=== PATIENT | male | born 1950 | race Caucasian/White ===

== ENCOUNTER → 2024-03-20 12:49 | Outpatient (REF) | payer MEDICARE, OTHER, SELFPAY | LOC: EMG 12:49 | PROVIDERS: ATTENDING PHYSICIAN Internal Medicine; FAMILY PHYSICIAN Physician Assistant Medical | DX: R20.0 Anesthesia of skin (principal) | CPT/HCPCS: 95886; 95911 ==

== ENCOUNTER → 2024-04-14 07:06 | Outpatient (REF) | payer MEDICARE, OTHER, SELFPAY | LOC: MRI 07:06 | PROVIDERS: ATTENDING PHYSICIAN Orthopaedic Surgery Orthopaedic Surgery of the Spine; FAMILY PHYSICIAN Internal Medicine | DX: M48.062 Spinal stenosis, lumbar region with neurogenic claudication (principal) | CPT/HCPCS: 72148 ==

== ENCOUNTER 2024-08-19 14:58 | Emergency (ER) | payer MEDICARE, OTHER, SELFPAY ==
[2024-08-19 15:02] VITALS: BP 175/89
--- NOTE | 2024-08-19 15:04 | ED.GENMED ---
ED Provider Triage
<Lucina Robertson PA-C - Last Filed: 08/19/24 15:07>
-
Patient seen by provider in Triage?: Seen in Triage
Attestation: A medical screening examination has been initiated by a qualified medical provider. Based on the assessment performed at this time, it has been determined that an emergent medical condition may exist and the patient has been informed
that further medical evaluation and possible additional diagnostic testing may be needed.
HPI: 74yoM here with chest pain. Started 3-4 days ago. Intermittent pain, radiates to back, associated with SOB. Recent COVID infection earlier this week.
GENERAL: Alert , in no apparent distress
EYE: No visual abnormalities.
NECK: Trachea midline
ENT: No visible abnormalities.
LUNGS: No acute respiratory distress
NEUROLOGICAL: Alert and oriented
SKIN: Skin intact. No visible changes.
MUSCULOSKELETAL: Moving extremities normally
PSYCH: Normal and appropriate interaction.
This is a medical evaluation conducted in person to initiate diagnostic evaluation and provide initial therapeutics. Please see further documentation by the treating clinician.
Cardiac labs, D-dimer, EKG, and CXR ordered.
History of Present Illness
<Lucina Robertson PA-C - Last Filed: 08/19/24 15:07>
General
Chief Complaint: Chest Pain
Time Seen by Provider: 08/19/24 16:28
<Samira Barton CONSULTING TECHNICAL DIRECTOR - Last Filed: 08/19/24 22:12>
General
Source: patient and spouse
Exam Limitations: none
Nursing documentation reviewed up to this point in time: agreed with
History of Present Illness
History of Present Illness:
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 He states while standing at a soccer game for his knees 3 days ago he
developed sudden onset of fast heart rate and shortness of breath. He has had several episodes daily lasting up to 5 minutes since. He has also had intermittent pain across his upper chest and the same level across his upper back.
He had COVID symptoms on July 29 with cough, diagnosed with COVID on August 06 and was given steroids. He states he has been gradually feeling a little better some good days, some bad days.
[place], went on a [employer] cruise where he and his both contracted COVID, and flew back on July 30. He denies pain or swelling in his legs. There are no aggravating or relieving factors for his symptoms.
He denies fever or chills. Denies abdominal pain.
Past History
<Lucina Robertson PA-C - Last Filed: 08/19/24 15:07>
Past History
ED Past Medical History: HTN, Hypercholesterolemia and Other
ED Past Surgical History: Tonsilectomy
Social History
Tobacco: Former smoker
Alcohol: Occasional
Drug: None
Personal:
Living: with family
Employment: Employed
Family History
Family History: Other (Noncontributory)
Review of Systems
<Samira Barton CONSULTING TECHNICAL DIRECTOR - Last Filed: 08/19/24 22:12>
Review of Systems
Allergies reviewed?: Yes
All Other Systems: ROS reviewed and negative except as documented in HPI and ROS
Constitutional: Denies fever or fatigue
Respiratory: Denies cough or trouble breathing (Feels short of breath at times)
Cardiac: Reports chest pain and palpitations; Denies diaphoresis
ABD/GI: Denies abdominal pain or nausea
: Denies dysuria or difficulty voiding
Musculoskeletal: Reports no symptoms
Skin: Reports no symptoms
Neurological: Reports no symptoms
Phy Exam
<Samira Barton CONSULTING TECHNICAL DIRECTOR - Last Filed: 08/19/24 22:12>
Physical Exam
Physical Exam:
GENERAL: No acute distress. A&Ox3.
CONSTITUTIONAL: Afebrile.
EYES: clear, conjunctivae normal
ENMT: moist mucus membranes, Pharynx nl
RESPIRATORY: Regular respirations, nonlabored, lungs clear.
CARDIOVASCULAR: Regular rate and rhythm, no murmurs, no rubs.
GI: Soft, nontender, normal BS
MUSCULOSKELETAL: Moves with ease. Well perfused.
SKIN: Warm, dry, pink
PSYCH: Normal mood and affect. Well kept, interactive and appropriate
NEUROLOGIC: Awake, alert and oriented. No focal neurological deficits
Scores
<Samira Barton CONSULTING TECHNICAL DIRECTOR - Last Filed: 08/19/24 22:12>
Heart Score for Chest Pain Patients
STEMI patient?: Not applicable
Course
<Lucina Robertson PA-C - Last Filed: 08/19/24 15:07>
Orders/Labs/Results
Orders:
Orders
08/19/24 15:01
Electrocardiogram (*1) Urgent
Reason for Study: Chest Pain
EKG- Treatment ONCE
08/19/24 15:06
CR Chest - 2 Views Urgent
Comment:
Reason For Exam: CP
08/19/24 15:12
Complete Blood Count/With Diff Urgent
Comprehensive Metabolic Panel Urgent
D-Dimer Urgent
Troponin I Urgent
08/19/24 15:52
CT Chest Pe Study Urgent
Comment:
Reason For Exam: Chest pain, elevated D-dimer
08/19/24 18:56
Azithromycin [Zithromax] 500 mg PO NOW STA
Doxycycline [Vibramycin] 100 mg PO NOW STA
Abnormal Lab Results
08/19/24
15:12
MPV 10.8 H fL
(7.4-10.4)
Abs Immat Gran (auto) 0.1 H 10^3/uL
(0-0.05)
Absolute Monos (auto) 0.8 H 10^3/uL
(0.1-0.6)
Immature Gran % 0.7 H %
(0-0.5)
D-Dimer 1.16 H ug/mlFEU
(0.00-0.50)
Glucose 141 H mg/dl
(70-99)
08/19/24 15:12
08/19/24 15:12
Vital Signs
Initial and Last Documented VS:
Initial Vital Signs
Temp Pulse Resp BP Pulse Ox
97.8 F 71 18 175/89 96
08/19/24 15:02 08/19/24 15:02 08/19/24 15:02 08/19/24 15:02 08/19/24 15:02
Last Documented Vital Signs
Temp Pulse Resp BP Pulse Ox
97.8 F 68 22 134/70 96
08/19/24 15:02 08/19/24 19:30 08/19/24 19:30 08/19/24 19:00 08/19/24 19:15
<Samira Barton, CONSULTING TECHNICAL DIRECTOR - Last Filed: 08/19/24 22:12>
Orders/Labs/Results
Orders:
Orders
08/19/24 15:01
Electrocardiogram (*1) Urgent
Reason for Study: Chest Pain
EKG- Treatment ONCE
08/19/24 15:06
CR Chest - 2 Views Urgent
Comment:
Reason For Exam: CP
08/19/24 15:12
Complete Blood Count/With Diff Urgent
Comprehensive Metabolic Panel Urgent
D-Dimer Urgent
Troponin I Urgent
08/19/24 15:52
CT Chest Pe Study Urgent
Comment:
Reason For Exam: Chest pain, elevated D-dimer
08/19/24 18:56
Azithromycin [Zithromax] 500 mg PO NOW STA
Doxycycline [Vibramycin] 100 mg PO NOW STA
Abnormal Lab Results
08/19/24
15:12
MPV 10.8 H fL
(7.4-10.4)
Abs Immat Gran (auto) 0.1 H 10^3/uL
(0-0.05)
Absolute Monos (auto) 0.8 H 10^3/uL
(0.1-0.6)
Immature Gran % 0.7 H %
(0-0.5)
D-Dimer 1.16 H ug/mlFEU
(0.00-0.50)
Glucose 141 H mg/dl
(70-99)
08/19/24 15:12
08/19/24 15:12
Vital Signs
Initial and Last Documented VS:
Initial Vital Signs
Temp Pulse Resp BP Pulse Ox
97.8 F 71 18 175/89 96
08/19/24 15:02 08/19/24 15:02 08/19/24 15:02 08/19/24 15:02 08/19/24 15:02
Last Documented Vital Signs
Temp Pulse Resp BP Pulse Ox
97.8 F 68 22 134/70 96
08/19/24 15:02 08/19/24 19:30 08/19/24 19:30 08/19/24 19:00 08/19/24 19:15
<Samira Barton CONSULTING TECHNICAL DIRECTOR - Last Filed: 08/19/24 22:12>
MDM/Problems Addressed
Differential Diagnosis Includes:
NV, PE, AAA
MDM/Problems Addressed:
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 He states while standing at a soccer game for his knees 3 days ago he
developed sudden onset of fast heart rate and shortness of breath. He has had several episodes daily lasting up to 5 minutes since. He has also had intermittent pain across his upper chest and the same level across his upper back.
He had COVID symptoms on July 29 with cough, diagnosed with COVID on August 06 and was given steroids. He states he has been gradually feeling a little better some good days, some bad days.
[place], went on a [employer] cruise where he and his both contracted COVID, and flew back on July 30. He denies pain or swelling in his legs. There are no aggravating or relieving factors for his symptoms.
He denies fever or chills. Denies abdominal pain.
Pt states he had a chest CT and has 'something abnormal' in his aorta, 'not big enough to be an aneurysm.' Gets routine yearly CT's for observation of the area
4:45 PM:
Afebrile, NAD, vital signs stable with a blood pressure of 136/78, heart rate 70, pulse ox 96% room air
Patient states he has no symptoms at this time
CBC normal
CMP normal
Troponin 0.031
D-dimer 1.[address] PE study
7:30 PM:
Chest CT PE study radiology report read: IMPRESSION:
1. No evidence of pulmonary embolism.
2. Mosaic attenuation of the lungs with a 2.4 cm nodular consolidation in the left lower lobe which may represent multifocal infectious process or mild interstitial edema with nodular atelectasis. Consider follow-up CT chest to ensure resolution.
No thoracic aneurysm
CAT scan report reviewed with patient and . They will take a copy to their PCP to discuss
Prescription for azithromycin and doxycycline sent to their pharmacy
<Samira Barton NP - Last Filed: 08/19/24 22:12>
*Critical Care Note
Total Time (30-74mins, 75-104mins- exclusive of procedures): Not Applicable
ED Attending Note
<Lucina Robertson PA-C - Last Filed: 08/19/24 15:07>
-
Portions of this chart may have been created with voice recognition software.� Occasional wrong word or��sound alike� substitutions may have occurred due to the inherent limitations of voice recognition software.
Discharge Plan
Departure
Patient Disposition: Home (Routine Discharge)
Date of Disposition: 08/19/24
Time of Disposition: 19:55
Patient with high blood pressure during this ER visit?: No
Condition: Good
Discharge Problem:
Pneumonia
Instructions: Pneumonia
Prescriptions:
New
doxycycline hyclate 100 mg capsule
100 mg PO BID Qty: 19 0RF
azithromycin [Zithromax] 250 mg tablet
250 mg PO DAILY Qty: 4 0RF
No Action
ascorbic acid (vitamin C) [Vitamin C] 1,000 MG tablet
1,000 mg PO DAILY
sennosides [senna] 1 TABLET tablet
2 tab PO BID 0RF
acetaminophen [Tylenol Extra Strength] 500 MG tablet
1,000 mg PO Q6H 0RF
tramadol 50 MG tablet
50 mg PO Q6HPRN PRN (Reason: moderate-severe pain) Qty: 30 0RF
Rx Instructions:
1 tab moderate pain or 2 if pain severe
Dx laminectomy
ongoing therapy
tizanidine 4 MG tablet
4 mg PO HS Qty: 5 0RF
metformin 1,000 mg Tablet Extended Release 24 Hr
1,000 mg PO DAILY
loratadine [Claritin] 10 mg Tablet
10 mg PO DAILY
irbesartan 150 mg Tablet
150 mg PO DAILY
dexamethasone 6 mg tablet
6 mg PO BID 2 Days Qty: 4 0RF
Rx Instructions:
first dose on 02/07/23, when completed, start prednisone taper
prednisone 10 mg tablet
10 mg PO DIRECTED 9 Days Qty: 18 0RF
Rx Instructions:
start after dexamethasone is completed-3 tabs QD for 3 days, 2 tabs QD for 3 days, 1 tab QD for 3 days
pantoprazole 40 mg Tablet,Delayed Release (Dr/Ec)
40 mg PO DAILY 14 Days Qty: 14 0RF
Referrals:
Ruddy Wise I., DO [Family Provider] - Call in 1-3 days for appt
Activity Restrictions/Additional Instructions:
As we discussed, your CAT scan shows pneumonia
I sent a prescription to your [facility] pharmacy for the azithromycin to take once daily for the next 4 days starting tomorrow as you were given a dose here today
I also sent a prescription to your pharmacy for doxycycline to take twice a day for 10 days starting tomorrow as you were given a dose here today
Call your doctors office tomorrow and make an appointment for follow-up for 10 to 14 days. Take your laboratory work and CAT scan report with you to discuss
Interventions
Interventions:
*Risk Screen - Suicide Last Done: 08/19/24 18:27
*General Assessment Last Done: 08/19/24 16:58
*Neglect/Abuse Screening Last Done: 08/19/24 18:27
ED- Fall Risk Assessment Last Done: 08/19/24 18:27
*ED COVID-19 Vaccine History Last Done: 08/19/24 16:58
*Nursing Disposition Last Done: 08/19/24 20:07
ED- Cardiac Assessment Last Done: 08/19/24 18:27
Discharge Date and Time
Discharge Date/Time: 08/19/24 20:08
Print Language: IRANIAN
[2024-08-19 15:17] LABS: % Basophils 0.4 % (0-2); % Eosinophils 1.2 % (0-6); % Immature Granulocytes 0.7 % (0-0.5); % Monocytes 8.6 % (1.7-9.3); % Neutrophils 63.1 % (42.2-75.2); Absolute Eosinophils 0.1 10^3/uL (0-0.7); Absolute Immature Granulocytes 0.1 10^3/uL (0-0.05); Absolute Lymphocytes 2.4 10^3/uL (1.2-3.4); Absolute Monocytes 0.8 10^3/uL (0.1-0.6); Absolute Neutrophils 5.8 10^3/uL (1.4-6.5); Hematocrit 43.2 % (39.0-52.0); Hemoglobin 15.1 g/dL (13.0-18.0); Mean Corpuscular Hgb 30.8 pg (27.0-31.0); Mean Platelet Volume 10.8 fL (7.4-10.4); Nucleated Red Blood Cells % 0 % (-); Platelet Count 268 10^3/uL (130-400); Red Blood Cell Count 4.91 10^6/uL (4.70-6.10); Red Cell Dist. Width 12.8 % (11.5-14.5); White Blood Cell Count 9.2 10^3/uL (4.8-10.8)
[2024-08-19 15:28] LABS: ALT (SGPT) 36 U/L (0-50); AST (SGOT) 32 U/L (17-59); Albumin 4.2 g/dl (3.5-5.0); Alkaline Phosphatase 73 U/L (38-126); Blood Urea Nitrogen 20 mg/dl (9-20); Calcium 9.1 mg/dl (8.4-10.2); Carbon Dioxide 28 mmol/L (22-30); Chloride 101 mmol/L (98-107); Glucose 141 mg/dl (70-99); Potassium 4.4 mmol/L (3.5-5.1); Sodium 141 mmol/L (135-145); Total Bilirubin 0.9 mg/dl (0.2-1.3); Total Protein 6.8 g/dl (6.3-8.2); eGFR > 60.00
[2024-08-19 15:29] LABS: D-Dimer 1.16 ug/mlFEU (0.00-0.50)
[2024-08-19 15:40] LABS: Troponin I 0.031 ng/ml
[2024-08-19 16:58] VITALS: BMI 31.7
[2024-08-19 17:00] VITALS: BP 129/73
[2024-08-19 18:09] VITALS: BP 141/71
[2024-08-19 19:00] VITALS: BP 134/70
[2024-08-19] MEDS: ZITHROMAX 500 MG PO (19:29)
[2024-08-19] MEDS: VIBRAMYCIN 100 MG PO (19:29)
== END 2024-08-19 20:08 | disposition home or self-care (01) ==
LOC: EMR 14:58
PROVIDERS: Physician Assistant; EMERGENCY PHYSICIAN Student in an Organized Health Care Education/Training Program; FAMILY PHYSICIAN Internal Medicine
DX: J18.9 Pneumonia, unspecified organism (principal); I10 Essential (primary) hypertension; E78.00 Pure hypercholesterolemia, unspecified; E11.9 Type 2 diabetes mellitus without complications; Z85.21 Personal history of malignant neoplasm of larynx; Z87.891 Personal history of nicotine dependence
CPT/HCPCS: 99284; 71046; 71275; 80053; 84484; 85025; 85379; 93005; Q9967

== ENCOUNTER → 2024-08-26 08:57 | Outpatient (REF) | payer MEDICARE, OTHER, SELFPAY | LOC: HWRCS 08:57 | PROVIDERS: ATTENDING PHYSICIAN Nurse Practitioner Gerontology; FAMILY PHYSICIAN Internal Medicine | DX: I77.810 Thoracic aortic ectasia (principal) | CPT/HCPCS: 93306 ==

== ENCOUNTER → 2024-11-03 15:52 | Outpatient (REF) | payer MEDICARE, OTHER, SELFPAY | LOC: RAD 15:52 | PROVIDERS: ATTENDING PHYSICIAN Nurse Practitioner Family | DX: J18.9 Pneumonia, unspecified organism (principal) | CPT/HCPCS: 71275; Q9967 ==

== ENCOUNTER → 2025-04-14 10:26 | Outpatient (REF) | payer MEDICARE, OTHER, SELFPAY | LOC: WDC 10:26 | PROVIDERS: ATTENDING PHYSICIAN Nurse Practitioner Family | DX: N63.22 Unspecified lump in the left breast, upper inner quadrant (principal) | CPT/HCPCS: 76642; 77062; 77066 ==

== ENCOUNTER → 2025-06-17 07:33 | Outpatient (REF) | payer MEDICARE, OTHER, SELFPAY | LOC: HWRCS 07:33 | PROVIDERS: ATTENDING PHYSICIAN Internal Medicine Cardiovascular Disease; FAMILY PHYSICIAN Nurse Practitioner Family | DX: R06.02 Shortness of breath (principal) | CPT/HCPCS: 78452; 93017; A9500 ==